=== PATIENT | female | born 1995 | race Caucasian/White ===

== ENCOUNTER → 2019-01-10 | Outpatient (CLI) | payer OTHER ==
--- NOTE | 2019-01-10 08:43 | RADIOLOGY REPORT (SQ) ---
EXAM DESCRIPTION: U/S OB 14+ TRNABD 1GES W/O DOP COMPLETED DATE/TIME: 01/10/2019 8:06 am REASON FOR STUDY: ANATOMY SCAN COMPARISON: None. TECHNIQUE: Static and Dynamic grayscale imaging performed of gravid uterus using transabdominal appr oac. Additional selected color Doppler and spectral images recorded. All stored on PACS. LIMITATIONS: None. FINDINGS: FETUSES SEEN:1 EGA: 20 weeks 4 days Calculated using BPD,FL,HC,AC documented on images. No discrepancy with clinica l dates. BHARGAV: 05/26/2019 EFW: 377 grams PERCENTILE: Not applicable. Fetus less than or equal to 20 weeks gestation. KAREEN: LVP -3.4 cm PLACENTA: Posterior. PRESENTATION: Breech. ANATOMY: HEART RATE: 173 beats per minute. FOUR CHAMBER HEART: Visualized. THREE VESSEL CORD: Yes. CORD INSERTION: Visualized. KIDNEYS AND BLADDER: Visualized. Appear normal. STOMACH: Visualized. Appears normal. SPINE: Normal as visualized. BRAIN AND LATERAL VENTRICLES: Visualized. Appear normal. OTHER: No other significant finding. MATERNAL ADNEXA: The left maternal ovary is not visualized. Small hypoechoic structure measures 1.5 x 1.4 x 1.5 cm maternal right ovary. Considerations for this finding includes a right maternal ovar victoria complex cyst. CERVICAL LENGTH: 2.8 cm. The tip of the placenta is approximately 2.2 cm from the cervix. Closed . OTHER: No other significant finding. IMPRESSION: LIVING INTRAUTERINE . ESTIMATED GESTATIONAL AGE: 20 weeks 4 days. NO VISUALIZED ANOMALIES. PLEASE SEE ABOVE FINDINGS. Trimester of : Second trimester - 13 weeks 1 day to 27 weeks 6 days. TECHNICAL DOCUMENTATION: JOB ID: [id number]- All Rights Reserved Reading location - IP/workstation name: [email or web address]
== END ==
LOC: RAD 07:09
PROVIDERS: ATTEND Advanced Practice Midwife
DX: Z34.82 Encounter for supervision of other normal pregnancy, second trimester (principal); Z3A.20 20 weeks gestation of pregnancy
CPT/HCPCS: 76805